=== PATIENT | female | born 1940 | race American Indian/Alaskan Native ===

== ENCOUNTER 2017-10-14 07:53 | Day surgery (SDC) | payer MEDICARE ==
[2015-05-23 08:22] VITALS: BMI 26.8
[2017-10-14] MEDS ORDERED: Lactated Ringer's 500 ML IV ONE ×2 (11:16)
[2017-10-14] MEDS ORDERED: Propofol 10 mg/ml Inj (20 ML) ONE (11:18)
--- NOTE | 2017-10-14 11:19 | CP.SDSHP ---
Same Day Surgery H & P - History Proposed Procedure: EGD/ COLONSCOPY Pre-Op Diagnosis: SEE NOTES - Previous Medical/Surgical History Cardiac: Hypertension Endocrine/Metabolic: Diabetes, Other Misc: Other Pain: 4.Moderate Pain - Allergies Allergies: Allergies No Known Allergies Allergy (Verified 05/23/15 08:22) - Physical Exam General Appearance: N Vital Signs: Vital Signs 10/14/17 09:51 Temperature 98.6 F Pulse Rate 59 L Respiratory 19 Rate Blood Pressure 143/64 O2 Sat by Pulse 98 Oximetry Mental Status: Alert & Oriented x3 Neuro: WNL Heart: Other - {Optional Preform as Required} Breast: WNL Abdomen: Other Rectal: Other Integument: WNL : WNL Ortho: WNL ENT: WNL - Impression Pt. Evaluated Today:Candidate for Anesthesia & Procedure: Yes - Date & Time Time: 11:19 Short Stay Discharge - Short Stay Discharge Admitting Diagnosis/Reason for Visit: DYSPEPSIA, RECTAL BLEED Disposition: HOME/ ROUTINE
[2017-10-14] MEDS ORDERED: Glucagon Recombinant 1 mg Inj ONE (11:43)
[2017-10-14] MEDS ORDERED: Belladonna-Phenobarbital PO ONE (12:15)
[2017-10-14 12:20] VITALS: TEMP 97.5; O2SAT 99
[2017-10-14 14:29] VITALS: BP 139/70; PULSE 84; RESP 11
== END 2017-10-14 13:20 | disposition home or self-care (01) ==
LOC: C.ENDO 07:53
PROVIDERS: ATTEND Specialist
DX: K30 Functional dyspepsia (principal); K64.8 Other hemorrhoids; K58.9 Irritable bowel syndrome, unspecified; K44.9 Diaphragmatic hernia without obstruction or gangrene; K29.80 Duodenitis without bleeding; I10 Essential (primary) hypertension; E11.9 Type 2 diabetes mellitus without complications; K21.0 Gastro-esophageal reflux disease with esophagitis
CPT/HCPCS: 43239; 45380; 82948; 88305; J1610; J2001; J2704; J7120

== ENCOUNTER 2018-03-25 10:58 | Outpatient (CLI) | payer MEDICARE | END 2018-03-25 10:59 | disposition home or self-care (01) | LOC: C.MAMMO 10:59 ==